=== PATIENT | female | born 1970 | race Caucasian/White ===

== ENCOUNTER → 2018-10-13 | Outpatient (CLI) | payer OTHER ==
[~2018-10-13] MED LIST: ADVAIR 250-501 EACH; ANTIVERT25 MG PO; ASPIR 8181 M1 PO; BACTRIM DS TAB1 EACH PO; BENTYL20 MG PO; BRILINTA90 MG PO; BYSTOLIC 5 MG5 M1 PO; CARAFATE 1 GM TA1 GM PO; CARISOPRODOL 3350 M1 PO; CEFUROXIME250 MG PO; CEFUROXIME500 MG PO; CELEXA40 MG; CEPHALEXIN 500500 M3 PO; CEPHALEXIN500 MG PO; CITRATE OF MAG300 ML PO; CYCLOBENZAPRINE5 MG PO; DEPAKOTE 250MG250 M1 PO; DILTIAZEM 24HR120 MG PO; DOXYCYCLINE 10100 M1 PO; DOXYCYCLINE 10100 MG PO; DUONEB 2.5-0.5 M3 ML INH; FLEXERIL PO; FLONASE 0.05%50 MCG NASAL; HYDROCODONE-AP1 EAC6 PO; HYDROCODONE-APA1 TA1 PO; HYDROXYZINE HCL25 M1; IBUPROFEN 600600 M1 PO; KEFLEX500 MG PO; LASIX 20 MG TAB20 MG PO; LASIX 40 MG TAB40 M2 PO; LATUDA120 MG PO; LATUDA80 MG PO; LEVAQUIN 750 M750 MG PO; LEXAPRO20 MG PO; LIPITOR 20 MG T20 M1 PO; LISINOPRIL20 MG PO; LOPRESSOR25 PO; MEDROLDOSEPACK PO; MINOCIN50 MG PO; MYSOLINE50 MG; NAPROSYN500 MG PO; NEURONTIN 300300 M1 PO; NEURONTIN600 MG PO; NITROGLYCERIN0.4 MG SUBLING; NORCO 5-325 TA1 EACH PO; OMEPRAZOLE 20 M20 M1 PO; ONDANSETRON HCL4 M2 PO; PEPCID20 MG PO; PERCOCET PO; PHENERGAN 25 MG25 M1 PO; POTASSIUM20 PO; PRAZOSIN 1 MG CA1 M1 PO; PREDNISONE 10 M10 MG PO; PREDNISONE 20 M20 MG PO; PRILOSEC 20 MG20 MG PO; PROAIR HFA8.5 GM INH; PROMETHAZINE/C118 ML PO; PROTONIX 20 MG20 M1 PO; PROTONIX40 M1 PO; SYMBICORT160 MCG/4. INH; TAMIFLU75 MG PO; TESSALON PERLE100 MG PO; TOPROL XL25 MG PO; TRAZODONE HCL100 MG PO; VENTOLIN HFA 1818 GM INH; VENTOLIN17 GM INH; VICODIN 5-5001 EACH; VICODIN ES 7.51 EACH PO; VIRTUSSIN AC L118 ML PO; XANAX 0.5 MG0.5 MG PO; ZOFRAN ODT4 MG PO; ZOFRAN4 MG PO; ZPAK PO; xolair
== END ==
LOC: CAT 12:21
DX: R06.02 Shortness of breath (principal); R07.9 Chest pain, unspecified; M47.814 Spondylosis without myelopathy or radiculopathy, thoracic region; M48.04 Spinal stenosis, thoracic region

== ENCOUNTER → 2019-03-06 | Outpatient (CLI) | payer OTHER | LOC: MRI 03-02 08:05 | DX: M47.816 Spondylosis without myelopathy or radiculopathy, lumbar region (principal); M12.88 Other specific arthropathies, not elsewhere classified, other specified site; M51.26 Other intervertebral disc displacement, lumbar region ==

== ENCOUNTER → 2019-05-11 | Outpatient (CLI) | payer OTHER ==
[~2019-05-11] MED LIST changes: +MECLIZINE HCL25 M1 PO
== END ==
LOC: BC 10:54
DX: Z12.31 Encounter for screening mammogram for malignant neoplasm of breast (principal)

== ENCOUNTER → 2019-07-25 | Outpatient (CLI) | payer OTHER | LOC: RAD 17:07 | DX: M54.10 Radiculopathy, site unspecified (principal) ==

== ENCOUNTER → 2019-09-12 | Outpatient (CLI) | payer OTHER ==
[~2019-09-12] VITALS: Ht 172.7 cm; Wt 127.9 kg
[~2019-09-12] MED LIST changes: +DEPAKOTE ER500 M1 PO; +HYDROCODON-ACE1 EAC8 PO; +LEXAPRO 10 MG T10 M2 PO; +OMEPRAZOLE40 MG PO; +ZANAFLEX4 MG PO
--- NOTE | ~2019-09-12 | HPC ---
[facility] [address] [place] [address] PAIN MANAGEMENT CONSULTATION Name: QUIN MCKINLEY QUIQUE Room #: REG DEEPTI Jesusita.#: [id number] Admission: 09/12/19 Attend Phys: Chris Hopkins DO Discharge: Date of : 70 Report #: [id number] THIS REPORT FOR: cc: Chris Pennington James A. DO Johnson, James E. DO ~ CC: Chris Andrews DATE OF SERVICE: 09/12/2019 CHIEF COMPLAINT: Axial back pain. HISTORY OF PRESENT ILLNESS: As you know, the patient is a pleasant, class 3, morbidly obese female who reports longstanding history of axial back pain. She indicates pain began somewhere in 2009. She denies injury or trauma. She reports that the pain she is experiencing radiates only to the posterolateral thigh, it does not go below the knee. She has "just been putting up with her symptoms." Pain has begun to worsen and thus the patient was evaluated further. It was determined that the patient may be suffering from lumbar radiculopathy and she was sent for MRI of the lumbar spine. The patient indicates that her pain is exacerbated with walking and sitting. There is little or no pain with lying down. The pain does not wake her up at night. She describes pain only as aching. She does not use any descriptors of numbness, tingling, burning, electrical when describing symptoms. She has been referred to our service to discuss treatment options for axial back pain. The patient indicates today pain is continuous, steady and constant. She describes the pain as aching, sharp and stabbing when pain is present. Places current pain score 7/10, daily average of 6-9/10, worst pain has been as 10/10. The patient states pain depends upon the day in the activities and when whether or not she will be an extreme pain or mild pain. Heat and cold compresses to the area tend to improve the pain as does pain medications. The patient is easily able to localize pain directly over the right sacroiliac joint and the facet at L5-S1. Symptoms the patient experiences radiating into the posterolateral thigh or aching in sensation and do not follow dermatomal distribution. The patient also reports having to sit on the left buttock area due to increased pain on the right side when seated in a standard chair. She has been referred to our service to discuss treatment options for axial back pain. PAST MEDICAL HISTORY: 1. Asthma. 2. Hypertension. 3. Coronary artery disease, [place] [address] PAIN MANAGEMENT CONSULTATION Name: QUIN MCKINLEY QUIQUE Room #: REG DEEPTI Rosa#: [id number] Admission: 09/12/19 Attend Phys: Chris Hopkins DO Discharge: Date of : 70 Report #: [id number] 4. Emotional problems. 5. Class 3 morbid obesity. 6. Dyslipidemia. 7. Gastroesophageal reflux disease. PAST SURGICAL HISTORY: 1. Tonsillectomy. 2. Gastric sleeve placement. 3. Cholecystectomy. 4. Percutaneous coronary artery stenting. SOCIAL HISTORY: The patient denies tobacco use. Denies IV or illicit drug use. Admits to 1-2 alcohol beverages per week. 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 She is working, not receiving workmen's compensation nor is she trying to obtain discrete benefits. She is not in litigation in regards to pain. She is unaccompanied at today's visit. REVIEW OF SYSTEMS: Positive for wearing corrective eyewear, heart trouble, status post percutaneous stenting, nausea, nervousness, depression, insomnia, GERD, emotional problems, asthma. All other review of systems negative per 12-point review of systems other than those listed in history of present illness. Pain impact score 56 of 70 indicating severe near complete interference of daily activities secondary to pain. IMAGING: MRI of the lumbar spine obtained on 03/06/2019 shows L1-L2, L2-L3, L3-L4 unremarkable. L4-L5 has mild disk bulge, mild facet arthropathy. No central canal nor neural foraminal stenosis, no impingement of nerve roots. No involvement of any lateral recess. L5-S1 shows a small posterior central disk protrusion without central canal or neural foraminal stenosis, no impingement of nerve roots. PHYSICAL EXAMINATION: VITAL SIGNS: Blood pressure 152/81, pulse 82, respiratory rate 16 and unlabored. The patient is 96% on room air. Height 5 feet 8 inches tall, weight 282 pounds, BMI calculated at 42.9. GENERAL: Well-developed, well-nourished, well-hydrated, class 3, morbidly obese 48-year-old female appearing stated age, pain is rated today at 7/10. HEENT: Normocephalic, atraumatic. Pupils equal, round and reactive. Extraocular muscles are intact. Sclerae nonicteric without injection. NEUROLOGIC: Cranial nerves 2-12 grossly intact. Speech is fluent. The patient deemed a good historian. LUNGS: Clear, no wheeze, rhonchi or rales. CARDIOVASCULAR: Regular. No appreciable gallop, no rub. ABDOMEN: Soft, obese, normoactive bowel sounds, spells. [facility] [address] [place] [address] PAIN MANAGEMENT CONSULTATION Name: QUIN MCKINLEY Room #: REG [facility]#: [id number] Admission: 09/12/19 Attend Phys: Chris Hopkins DO Discharge: Date of : 70 Report #: [id number] EXTREMITIES: Show no clubbing, no cyanosis, no edema. MUSCULOSKELETAL: Lower extremity strength equal and symmetrical 5/5, intact to light touch from L1 through S2 dermatomes. Seated straight leg raising negative. Supine straight leg raising negative. Monica's test is positive only for SI joint dysfunction on the right, negative left. Deep palpation of the area causes intensification of pain. Ankle clonus negative. Babinski is negative. Gait mildly antalgic favoring right lower extremity over left secondary to SI joint and generated pain. Lumbar provocation testing is met with increased pain over the facet joints of the lower lumbar spine on the right, negative left. This is noted with rotation and lateral flexion to the right, negative left. Forward flexion of lumbar spine does improve axial back pain. ASSESSMENT: 1. Lumbosacral spondylosis without radiculopathy. 2. Right sacroiliac joint dysfunction. 3. Chronic intractable pain. PLAN: 1. Based on today's physical exam and history the patient has provided, the description the patient uses in regards to pain as well as the location of symptoms, likely source of the patient's pain is a combination of a right sacroiliac joint dysfunction and the facet joints of the lower lumbar spine on the right. The patient reports that she had a fall injury that may have precipitated her ongoing pain, specifically over the SI joint. She apparently fell from a height, landing on her right leg causing instantaneous SI joint symptoms. This is easily correlated back to this fall as the patient remembers it quite vividly during our discussion today. The symptoms do fit with SI joint dysfunction and facet arthropathy of the lumbar spine. We discussed the treatment options for these 2 issues. It would appear that the patient does have a leg length discrepancy based on her physical exam today and this dose further correlate with the SI joint dysfunction. The fact that the patient's good improvement with forward flexion of the lumbar spine, but worsening of symptoms with extension, rotation, and lateral flexion to the right would indicate facet arthropathy symptoms as we were loading the facet joints with those maneuvers. After we discussed the findings of physical exam and the minor findings in her MRI, we then discussed the treatment options for the right sacroiliac joint dysfunction and the facet arthropathy at the L4-L5 and L5-S1 levels. 2. We discussed treatment options, which would include physical therapy, stretching exercise, core strengthening and a concerted effort at weight loss. This is necessary if the patient is going to see prolonged pain improvement. Without weight loss, the facet joints will continue to bear greater and greater weight and thus develop more rapid arthritis. The SI joint is a weightbearing joint and if this is not reduced, it would be difficult for her to maintain good analgesic benefit. We discussed medication management utilizing [address] [address] PAIN MANAGEMENT CONSULTATION Name: QUIN MCKINLEY QUIQUE Room #: REG DEEPTI Rosa#: [id number] Admission: 09/12/19 Attend Phys: Chris Hopkins DO Discharge: Date of : 70 Report #: [id number] anti-inflammatories as the baseline pain control. We discussed intra-articular facet injections, medial branch nerve blocks and radiofrequency lesioning to address the facet joints at the L4-L5 and L5-S1 level on the right. We discussed SI joint injections as well as lesioning of the lateral branches of the sacrum as a way to treat SI joint dysfunction. After reviewing the risks and benefits of all proposed treatment options, the patient chose to begin with medial branch nerve blocks. 3. Due to third green party payer restrictions, authorization has to be obtained before the patient could undergo medial branch nerve blocks. The plan would be to have the patient undergo L3, L4, L5 and S1 medial and lateral branch blocks. If these are successful in alleviating symptoms, we would then recommend undergoing the second in series. If the second in series is also effective, then move forward with radiofrequency lesioning of the medial branch nerves to address axial back pain issues. The patient is agreeable with plan. We will await the authorization for the patient to undergo the procedure. 4. We made no changes in the patient's medication management at this visit. The patient will continue current medical therapy as previously prescribed. 5. We will see the patient back in followup visit once we have achieved authorization to undergo L3, L4, L5 and S1 medial/lateral branch nerve blocks under fluoroscopic guidance. We have not made the patient a tentative appointment as we await the authorization and then make an appointment mutually favorable. 6. We wish to thank Dr. Pennington for the referral of the patient to our clinic. We will keep you apprised of response to treatment as we address her axial back pain due to facet arthropathy and SI joint dysfunction. Again, we wish to thank you for the opportunity to see the patient in consultation. By: [id number] Chris Hopkins DO /nt
[2019-09-12 12:43] VITALS: BP 152/81
--- NOTE | 2019-09-12 13:01 | NUR ---
Pain Clinic Assessment: 1. History of Osteoarthritis: BACK History of Rheumatoid Arthritis: Not Applicable 2. Height: 5 ft. 8 in. 172.7 cm. Weight: 282.0 lb. oz. 127.915 kg. Patient's BMI: 42.9 3. Vital Signs: BP: 152/81 Pulse: 82 Resp: 16 Temp: 02 Sat: 96 ECG Mon: 4. Pain Intensity: 7 5. Fall Risk: Dizziness: N Needs help standing or walking: N Fallen in the last 3 months: N Fall risk comments: 6. Patient on Blood Thinner: None 7. History of Hypertension: Y 8. Opioid Therapy greater than 6 weeks: N Opiate Contract Signed: 9. Risk Assessment Tool Provided: LOW RISK 05/21 10. Functional Assessment Tool: 11. Recreational Drug Use: Never Drug Type: Tobacco Use: Never Smoker Tobacco Type: Amount or Packs/day: How Many Years: Alcohol Use: Yes Frequency: Weekly Quant: 1-2
== END ==
LOC: PAIN 06:44
PROVIDERS: ATTEND Anesthesiology Pain Medicine
DX: M47.817 Spondylosis without myelopathy or radiculopathy, lumbosacral region (principal); G89.29 Other chronic pain; M53.3 Sacrococcygeal disorders, not elsewhere classified; J45.909 Unspecified asthma, uncomplicated; I10 Essential (primary) hypertension; I25.10 Atherosclerotic heart disease of native coronary artery without angina pectoris; Z79.899 Other long term (current) drug therapy

== ENCOUNTER → 2019-09-26 | Outpatient (CLI) | payer OTHER ==
[~2019-09-26] VITALS: Ht 172.7 cm; Wt 126.3 kg
[2019-09-26 12:51] VITALS: BP 150/85
--- NOTE | 2019-09-26 12:59 | NUR ---
Pain Clinic Assessment: 1. History of Osteoarthritis: BACK History of Rheumatoid Arthritis: Not Applicable 2. Height: 5 ft. 8 in. 172.7 cm. Weight: 278.4 lb. oz. 126.282 kg. Patient's BMI: 42.3 3. Vital Signs: BP: 150/85 Pulse: 66 Resp: 16 Temp: 02 Sat: 100 ECG Mon: 4. Pain Intensity: 7 5. Fall Risk: Dizziness: N Needs help standing or walking: N Fallen in the last 3 months: N Fall risk comments: 6. Patient on Blood Thinner: None 7. History of Hypertension: Y 8. Opioid Therapy greater than 6 weeks: N Opiate Contract Signed: 9. Risk Assessment Tool Provided: LOW RISK 05/21 10. Functional Assessment Tool: 11. Recreational Drug Use: Never Drug Type: Tobacco Use: Never Smoker Tobacco Type: Amount or Packs/day: How Many Years: Alcohol Use: Yes Frequency: Special Occasions Quant: 1
--- NOTE | 2019-10-03 11:46 | HPC ---
[facility] [place] [address] PAIN MANAGEMENT CONSULTATION Name: QUIN MCKINLEY QUIQUE Room #: REG DEEPTI Jesusita.#: [id number] Admission: 09/26/19 Attend Phys: Chris Hopkins DO Discharge: Date of : 70 Report #: [id number] THIS REPORT FOR: cc: Chris Pennington James A. DO Johnson, James E. DO ~ DATE OF SERVICE: 09/26/2019 REFERRING PHYSICIAN: Chris Pennington DO CHIEF COMPLAINT: Axial back pain. HISTORY OF PRESENT ILLNESS: As you know, the patient is a pleasant, class 3, morbidly obese female with longstanding history of axial back pain. She indicates pain began somewhere in 2009. Denies injury or trauma. She was seen in consultation per the request of Dr. Pennignton on 09/12/2019, diagnosed with lumbosacral spondylosis without radicular symptoms and some right sacroiliac joint dysfunction. She made today's appointment to undergo medial branch blocks of the right L3, L4 and L5 nerve roots to determine if symptoms will improve with interventional treatments. She returns today in followup visit, reporting pain score 7/10 to undergo right L3, L4, L5 medial branch nerve blocks. ALLERGIES: PENICILLINS. CURRENT MEDICATIONS: Trazodone, gabapentin, atorvastatin, alprazolam, Lexapro, Depakote, omeprazole, ondansetron, hydrocodone, cyclobenzaprine and tizanidine. SOCIAL HISTORY: The patient reports nonsmoker. Denies IV or illicit drug use. Admits to 1-2 alcohol beverages per week. She is employed, working, not receiving workmen's compensation, accompanied by her present in room today. IMAGING: No new imaging available. PHYSICAL EXAMINATION: VITAL SIGNS: Blood pressure 150/85, pulse 66, respiratory rate 16 and unlabored. The patient is 100% on room air. Height 5 feet 8 inches tall, weight 178.4 pounds, BMI calculated 42.3. GENERAL: Well-developed, well-nourished, well-hydrated, class 3, morbidly obese 48-year-old female appearing stated age, pain is rated around 7/10. HEENT: Normocephalic, atraumatic. Pupils equal, round and reactive. EXTREMITIES: Show no clubbing, no cyanosis, no edema. MUSCULOSKELETAL: Lower extremity strength appears symmetrical 5/5. Muscle bulk and tone is equal and symmetrical in comparing left lower extremity to right. Seated straight leg raising negative. Supine straight leg raising negative. [address] [address] PAIN MANAGEMENT CONSULTATION Name: QUIN MCKINLEY QUIQUE Room #: REG DEEPTI Rosa#: [id number] Admission: 09/26/19 Attend Phys: Chris Hopkins DO Discharge: Date of : 70 Report #: [id number] Monica's test is positive for right SI joint dysfunction, negative left. Lumbar provocation testing is met with increased pain on the right. ASSESSMENT: 1. Lumbosacral spondylosis without radiculopathy. 2. Right sacroiliac joint dysfunction. 3. Chronic intractable pain. 4. Morbid obesity. PLAN: 1. The patient has returned today in followup visit to undergo medial branch nerve blocks to address right lower back pain. The patient has been advised risks and benefits of this procedure. These risks include but are not necessarily limited to bleeding, bruising, infection, worsening of pain, no relief of pain, also risk of temporary or permanent muscle weakness, temporary or permanent nerve damage, possible paralysis and . The patient states understood and wished to proceed. 2. We will see the patient back in followup visit in 1 week for second in the series of medial branch blocks assuming excellent efficacy with this block today. She returns to that appointment and we will discuss the efficacy of today's appointment and we will determine whether or not moving forward with the treatment is appropriate. DESCRIPTION OF PROCEDURE: Right L3, L4, L5 medial branch block under fluoroscopic guidance. This is the first of 2 diagnostic medial branch blocks on the right side that the patient is undergoing. After obtaining written consent, the patient was taken back to the fluoroscopy suite and placed in a prone position on the fluoroscopy table with a pillow under the abdomen to decrease the lumbar lordosis. The skin overlying the lumbosacral area was prepped and draped in an aseptic fashion. The L4 transverse process corresponding L3 medial branch nerve, L5 transverse process corresponding the L4 medial branch nerve on the right side was visualized under AP fluoroscopy. The skin and subcutaneous tissue overlying the target site(s) of injection was anesthetized using 2 mL of 1% lidocaine. Three 22-gauge, 4-1/2 inch spinal needles with bent tip was advanced under fluoroscopic guidance using a superior to inferior, lateral to medial approach to the dorsal, superior and medial aspect of the base of the transverse process(es). The needles were then directed ventral, medial and caudad to reach the target location(s). An oblique view facilitated needle placement with properly positioned needles(s) in the middle of the "eye" of the Osmin dog for the medial branch block(s). At each site the needle(s) rested on periosteum. After negative aspiration for heme or [facility] [address] [place] [address] PAIN MANAGEMENT CONSULTATION Name: QUIN MCKINLEY Room #: REG [facility]#: [id number] Admission: 09/26/19 Attend Phys: Chris Hopkins DO Discharge: Date of : 70 Report #: [id number] CSF, 0.5mL of bupivacaine 0.5% was slowly injected at each site to avoid forcing the solution away from the target points(s). The needles were the removed. The L5 dorsal ramus block on the right side was performed using a slightly oblique approach under fluoroscopic guidance, placing the needle within the groove between the sacral site and the superior articular process of S1. The needle rested on periosteum. After negative aspiration for heme or CSF, 0.5mL bupivacaine 0.5% was slowly injected to avoid forcing the solution away from the target point. The needle was then removed. Sterile bandages were placed over the injection site. There were no apparent complications. The patient tolerated the procedure well and was carefully escorted to the recovery room in stable condition. The VAS was 7/10 before the procedure and 0/10 minutes after the procedure. After meeting discharge criteria, the patient was discharged home. <ELECTRONICALLY SIGNED> By: Chris Hopkins DO 10/03/19 [id number] Chris Hopkins DO /nt
== END | disposition home or self-care (01) ==
LOC: PAIN 06:54
PROVIDERS: ATTEND Anesthesiology Pain Medicine
DX: M47.816 Spondylosis without myelopathy or radiculopathy, lumbar region (principal); G89.29 Other chronic pain; M53.3 Sacrococcygeal disorders, not elsewhere classified; E66.01 Morbid (severe) obesity due to excess calories; E78.5 Hyperlipidemia, unspecified; F31.9 Bipolar disorder, unspecified; I25.10 Atherosclerotic heart disease of native coronary artery without angina pectoris; Z98.890 Other specified postprocedural states; Z68.41 Body mass index [BMI] 40.0-44.9, adult; Z79.899 Other long term (current) drug therapy; Z86.73 Personal history of transient ischemic attack (TIA), and cerebral infarction without residual deficits

== ENCOUNTER → 2019-10-02 | Outpatient (CLI) | payer OTHER ==
[~2019-10-02] VITALS: Ht 172.7 cm; Wt 125.9 kg
[2019-10-02 08:07] VITALS: BP 127/81
--- NOTE | 2019-10-02 08:13 | NUR ---
Pain Clinic Assessment: 1. History of Osteoarthritis: BACK History of Rheumatoid Arthritis: Not Applicable 2. Height: 5 ft. 8 in. 172.7 cm. Weight: 277.6 lb. oz. 125.919 kg. Patient's BMI: 42.2 3. Vital Signs: BP: 127/81 Pulse: 72 Resp: 16 Temp: 02 Sat: 99 ECG Mon: 4. Pain Intensity: 3-4 5. Fall Risk: Dizziness: N Needs help standing or walking: N Fallen in the last 3 months: N Fall risk comments: 6. Patient on Blood Thinner: None 7. History of Hypertension: Y 8. Opioid Therapy greater than 6 weeks: N Opiate Contract Signed: 9. Risk Assessment Tool Provided: LOW RISK 05/21 10. Functional Assessment Tool: 11. Recreational Drug Use: Never Drug Type: Tobacco Use: Never Smoker Tobacco Type: Amount or Packs/day: How Many Years: Alcohol Use: Yes Frequency: Monthly Quant: 1-2
--- NOTE | 2019-10-03 11:46 | HPC ---
[facility] [place] [address] PAIN MANAGEMENT CONSULTATION Name: QUIN MCKINLEY QUIQUE Room #: REG MANNAleah Mc.#: [id number] Admission: 10/02/19 Attend Phys: Chris Hopkins DO Discharge: Date of : 70 Report #: [id number] THIS REPORT FOR: cc: Chris Pennington James A. DO Johnson, James E. DO ~ DATE OF SERVICE: 10/02/2019 REFERRING PHYSICIAN: Dr. Chris Pennington. CHIEF COMPLAINT: Axial back pain. HISTORY OF PRESENT ILLNESS: As you know, the patient is a 49-year-old, class 3, morbidly obese female with longstanding history of axial back pain, who returns today in followup visit having completed medial branch blocks of the right L3, L4, and L5 lumbar medial branch nerves with good efficacy. She reports near 100% improvement in overall pain lasting for hours. Unfortunately, her symptoms did return, which is appropriate for this diagnostic testing. She returns today in followup visit for the second in the series of diagnostic testing with plans to move forward with radiofrequency lesioning if this is successful at alleviating her symptoms again over a prescribed period of time. The patient is placing pain today at 3-4/10. As indicated above, the patient reported 100% improvement in overall pain lasting for nearly 9 hours. ALLERGIES: PENICILLIN. CURRENT MEDICATIONS: Tizanidine, cyclobenzaprine, hydrocodone, ondansetron, omeprazole, Depakote, escitalopram, alprazolam, atorvastatin, gabapentin, trazodone. SOCIAL HISTORY: The patient denies tobacco use, denies IV or illicit drug use. Admits to 1-2 alcohol beverages per week. 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 IMAGING: No new imaging available. PHYSICAL EXAMINATION: VITAL SIGNS: Blood pressure 127/81, pulse 72, respiratory rate 16 and unlabored. The patient is 99% on room air. Height 5 feet 8 inches tall, weight 277.6 pounds, BMI calculated 42.2. GENERAL: Well-developed, well-nourished, well-hydrated, class 3, morbidly obese 49-year-old female, appearing stated age, pain is rated at 3-4/10. HEENT: Normocephalic, atraumatic. Pupils equal, round, and reactive. Speech fluent. [address] [address] PAIN MANAGEMENT CONSULTATION Name: QUIN MCKINLEY Room #: REG CLI .Viviane.#: [id number] Admission: 10/02/19 Attend Phys: Chris Hopkins DO Discharge: Date of : 70 Report #: [id number] EXTREMITIES: Show no clubbing, no cyanosis, no edema. MUSCULOSKELETAL: Lower extremity strength appears symmetrical 5/5, intact to light touch from L1 through S2 dermatomes. Ankle clonus negative. Babinski remains negative. Monica's test is positive for right SI joint dysfunction, negative on the left. Seated straight leg raising negative. Supine straight leg raising negative. Modified Gaenslen's positive for axial low back pain. Lumbar provocation including extension, rotation, lateral flexion to the right causes intensification of pain. ASSESSMENT: 1. Lumbosacral spondylosis without radiculopathy. 2. Facet arthropathy of the lumbar spine. 3. Right sacroiliac joint dysfunction. 4. Chronic intractable pain. PLAN: 1. The patient returns today in followup visit having received 100% improvement in overall pain lasting for nearly 9 hours with the previous medial branch nerve blocks on the right side. She returns today in followup visit for the second in the series of this progressive process. If she sees excellent benefit with this injection, then we will move forward with radiofrequency lesioning of the right L3, L4, and L5 medial branch nerves. The patient is agreeable with plan. She has been advised of the risks and benefits of the second in the series of medial branch blocks, states she understood and wished to proceed. 2. The patient was provided a restriction in lifting and ambulatory activities today at work to recover from today's procedure. 3. No medication changes made at today's visit. The patient will continue current medical therapy as previously prescribed. 4. We will see the patient back in followup visit for radiofrequency lesioning of the right L3, L4, and L5 medial branch nerves, assuming good efficacy with today's procedure. She left our clinic today reducing her pain by 50%. DESCRIPTION OF PROCEDURE: Right L3, L4, L5 medial branch nerve blocks under fluoroscopy. This is the second of 2 diagnostic medial branch blocks on the right side that the patient is undergoing. After obtaining written consent, the patient was taken back to the fluoroscopy suite and placed in a prone position on the fluoroscopy table with a pillow under the abdomen to decrease the lumbar lordosis. The skin overlying the lumbosacral area was prepped and draped in an aseptic fashion. The L4 transverse process corresponding the L3 medial branch nerve and the L5 transverse process corresponding the L4 medial branch nerve on the right side was visualized under AP fluoroscopy. The skin and subcutaneous tissue overlying the target site(s) of injection were anesthetized using 2 mL of 1% lidocaine. [address] [address] PAIN MANAGEMENT CONSULTATION Name: QUIN MCKINLEY Room #: REG [facility]#: [id number] Admission: 10/02/19 Attend Phys: Chris Hopkins DO Discharge: Date of : 70 Report #: [id number] Four, 22-gauge, 4-1/2-inch spinal needle with a bent tip was advanced under fluoroscopic guidance using a superior to inferior and lateral to medial approach to the dorsal, superior and medial aspect of the base of the transverse process(es). The needles were then directed ventral, medial and caudad to reach the target location(s). An oblique view facilitated needle placement with properly positioned needles(s) in the middle of the "eye" of the Osmin dog for the medial branch block(s). At each site the needle(s) rested on periosteum. After negative aspiration for heme or CSF, 0.5 mL of bupivacaine 0.5% was slowly injected at each site to avoid forcing the solution away from the target points(s). The needle(s) were then removed. The L5 dorsal ramus block on the right side was performed using a slightly oblique approach under fluoroscopic guidance, placing the needle within the groove between the sacral site and the superior articular process of S1. The needle rested on periosteum. After negative aspiration for heme or CSF, 0.5 mL of bupivacaine 0.5% was slowly injected to avoid forcing the solution away from the target point. The needle was then removed. Sterile bandages were placed over the site. There were no apparent complications. The patient tolerated the procedure well and was carefully escorted to the recovery room in stable condition. The VAS was 4/10 before the procedure and 2/10 10 minutes after the procedure. After meeting discharge criteria, the patient was discharged home. <ELECTRONICALLY SIGNED> By: Chris Hopkins DO 10/03/19 [id number] Chris Hopkins DO /nt
== END | disposition home or self-care (01) ==
LOC: PAIN 06:47
PROVIDERS: ATTEND Anesthesiology Pain Medicine
DX: M47.817 Spondylosis without myelopathy or radiculopathy, lumbosacral region (principal); M47.816 Spondylosis without myelopathy or radiculopathy, lumbar region; M53.3 Sacrococcygeal disorders, not elsewhere classified; M54.9 Dorsalgia, unspecified; G89.29 Other chronic pain; I25.10 Atherosclerotic heart disease of native coronary artery without angina pectoris; Z98.890 Other specified postprocedural states; Z79.899 Other long term (current) drug therapy; Z86.73 Personal history of transient ischemic attack (TIA), and cerebral infarction without residual deficits; Z88.0 Allergy status to penicillin

== ENCOUNTER → 2019-10-09 | Outpatient (CLI) | payer OTHER ==
[~2019-10-09] VITALS: Ht 172.7 cm; Wt 125.6 kg
--- NOTE | ~2019-10-09 | HPC ---
[facility] [address] [address] PAIN MANAGEMENT CONSULTATION Name: QUIN MCKINLEY QUIQUE Room #: REG MANNAleah Mc.#: [id number] Admission: 10/09/19 Attend Phys: Chris Hopkins DO Discharge: Date of : 70 Report #: [id number] THIS REPORT FOR: cc: Chris Pennington James A. DO Johnson, James E. DO ~ CC: Chris Andrews DATE OF SERVICE: 10/09/2019 CHIEF COMPLAINT: Axial back pain. HISTORY OF PRESENT ILLNESS: As you know, the patient is a class 3, morbidly obese 49-year-old female with longstanding history of axial back pain, who was referred to our clinic to discuss treatment for facet arthropathy pain involving the right lower back. She has successfully completed medial branch nerve blocks x 2 with good efficacy to address the L3, L4, L5 medial branches on the right side. She returns today in followup visit to undergo radiofrequency lesioning of the right L3, L4 and L5 medial branch nerves in hopes of gaining analgesic benefit. The patient places current pain at 4/10. The previous medial branch blocks provided 100% improvement in overall pain lasting for several hours. She returns today for radiofrequency lesioning of the right L3, L4 and L5 medial branch nerves. ALLERGIES: PENICILLIN. CURRENT MEDICATIONS: Tizanidine, cyclobenzaprine, hydrocodone, ondansetron, omeprazole, Depakote, escitalopram, alprazolam, atorvastatin, gabapentin, and trazodone. SOCIAL HISTORY: The patient denies tobacco use. Denies IV or illicit drug use. Admits to occasional alcohol beverage. 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 IMAGING: No new imaging available. PHYSICAL EXAMINATION: VITAL SIGNS: Blood pressure 123/71, pulse 70, respiratory rate 18 and unlabored. The patient is 99% on room air. Height 5 feet 8 inches tall, weight 277 pounds, BMI calculated 42.1. GENERAL: Well-developed, well-nourished, well-hydrated, class 3, morbidly obese 49-year-old female, appearing stated age, pain is rated today at approximately 4/10. [address] [address] PAIN MANAGEMENT CONSULTATION Name: QUIN MCKINLEY QUIQUE Room #: REG [facility] Jesusita.#: [id number] Admission: 10/09/19 Attend Phys: Chris Hopkins DO Discharge: Date of : 70 Report #: [id number] HEENT: Normocephalic, atraumatic. Pupils equal, round and reactive. Speech fluent. EXTREMITIES: Show no clubbing, no cyanosis, no edema. MUSCULOSKELETAL: Seated straight leg raising remains negative. Supine straight leg raising negative. Monica's test is negative. Modified Gaenslen's positive for axial low back pain. Lumbar provocation testing including extension, rotation, lateral flexion all intensify axial back pain directly over the facet joints on the right. ASSESSMENT: 1. Lumbosacral spondylosis without radiculopathy. 2. Facet arthropathy of the lumbar spine. 3. Continued right sacroiliac joint dysfunction. 4. Chronic intractable pain. PLAN: 1. The patient returns today in followup visit having noted 100% improvement in overall pain with the medial branch blocks provided at our last visit. She returns today for radiofrequency lesioning of the right L3, L4 and L5 medial branch nerves. The patient has been advised risks and benefits of this procedure. These risks include but are not necessarily limited to bleeding, bruising, infection, worsening pain, no relief of pain, also risk of temporary or permanent muscle weakness, temporary or permanent nerve damage, possible paralysis and . The patient states understood and wished to proceed. 2. No medication changes made at today's visit. The patient will continue current medical therapy as prior prescribed. 3. The patient has requested refill of her pain medication started by Dr. Chris Pennington. We advised the patient we could provide her medications, but they would only fill a 7-day prescription for initial dosing. This is due to third republic[employer] payer restrictions. They would only offer a 7-day prescription with a new prescribing physician and then the patient would have to pay javier for the 3 remaining weeks of the month to maintain medications. We recommend the patient follow up with the prescribing physician for refill of the medications as they will be able to provide a 30-day prescription. I am hopeful the patient will no longer need these medications in the very near future. We have advised the patient at this time that the plan is to wean off of opioid medications as quickly as possible. She can do this through her primary care physician, the prescribing doctor. 4. We will be available to see the patient back in followup visit on an as needed basis. We wish the patient well with this radiofrequency lesioning and will see her back on an as needed treatment basis. By: [id number] Chris Hopkins DO /nt
--- NOTE | ~2019-10-09 | P ---
[facility] [place] [address] PROCEDURE REPORT Name: QUIN MCKINLEY QUIQUE Room #: REG Aleah Mc.#: [id number] Admission: 10/09/19 Attend Phys: Chris Hopkins DO Discharge: Date of : 70 Report #: [id number] THIS REPORT FOR: cc: Chris Pennington James A. DO Johnson, James E. DO ~ CC: Chris Andrews DATE OF SERVICE: 10/09/2019 DESCRIPTION OF PROCEDURE: Right L3, L4, L5 radiofrequency lesioning of the medial branch nerves of the lumbar spine. The procedure was explained and informed consent was obtained from the patient. The patient was informed of the risks of procedure including infection, bleeding, nerve damage, failure to produce pain relief, and postoperative discomfort lasting for several weeks. The patient agrees to undergo the procedure and signed the consent. The patient was then taken to the fluoroscopy suite, placed in prone position with pillow under abdomen to decrease lumbar lordosis. Skin overlying lumbosacral area then prepped and draped in aseptic fashion. AP imaging of the lumbar spine was used to identify the L2 through L5 vertebral bodies and the sacral ala. The target location of the right side of the L4 transverse process corresponding the L3 medial branch nerve and the L5 transverse process corresponding the L4 medial branch nerves were established. Using a 25-gauge 1-1/4 inch needle, skin wheals were placed at the junction of the transverse processes in the respective superior articular process using 1 mL of 1% lidocaine. We were careful to only anesthetize the skin and not the deep tissue. The 15 mm radiofrequency lesioning needles were advanced under fluoroscopic guidance using a superior, inferior, lateral to medial approach to the dorsal superior and medial aspect of the base of the transverse processes. [place] rested on periosteum. Oblique view facilitated needle placement with properly positions within the middle of the "eye" of the Corey dog. Touching the bone initially assured the needles were not placed too deeply. Radiofrequency lesioning of the L5 medial branch nerve on the right side was performed using a superior to inferior, lateral to medial approach under fluoroscopic guidance, placing the needle within the groove between the sacral ala and the superior articular process of S1. Needle rested on periosteum. Stimulation was performed at each level once the cannulas were in position. Sensory stimulation performed at 0.2, 0.5 and 0.1 with good impedance of 209, 218 and 245 at 50 Hz for the L3, L4, L5 medial branch nerves respectively. [facility] [address] [place] [address] PROCEDURE REPORT Name: QUIN MCKINLEY QUIQUE Room #: REG DEEPTI Rosa#: [id number] Admission: 10/09/19 Attend Phys: Chris Hopkins DO Discharge: Date of : 70 Report #: [id number] stimulation of the lumbar and buttock region was elicited indicating correct alignment with the posterior primary ramus. Absence of lower motor fasciculation was noted at 3 volts 2 Hz stimulation when testing the L3, L4, L5 medial branch nerves respectively. Following the affirmation of dissociation between sensory and motor stimulation, negative aspiration was noted as well as cerebrospinal fluid negative noted at each level. Next, 1 mL of bupivacaine 0.5% was injected slowly. After a 90-second delay, lesions were performed at a temperature of 80 degrees Celsius for 90 seconds. After each of the needles had cooled, 1 mL of a solution containing 1 mL 40 mg per mL, 40 mg total triamcinolone and 4 mL of bupivacaine 0.5% injected slowly. Needle was then retracted approximately half way, flushed with 1 mL of 1% lidocaine and then removed. Sterile bandages placed over each of the injection sites. The patient was able to move all 4 extremities purposefully after procedure. The patient tolerated procedure well, carefully escorted to recovery room in stable condition. No apparent complications. After meeting our discharge criteria, the patient discharged home. By: [id number] Chris Hopkins DO /nt
[2019-10-09 08:23] VITALS: BP 123/71
--- NOTE | 2019-10-09 08:29 | NUR ---
Pain Clinic Assessment: 1. History of Osteoarthritis: BACK History of Rheumatoid Arthritis: Not Applicable 2. Height: 5 ft. 8 in. 172.7 cm. Weight: 277.0 lb. oz. 125.647 kg. Patient's BMI: 42.1 3. Vital Signs: BP: 123/71 Pulse: 70 Resp: 18 Temp: 02 Sat: 99 ECG Mon: 4. Pain Intensity: 4 5. Fall Risk: Dizziness: N Needs help standing or walking: N Fallen in the last 3 months: N Fall risk comments: 6. Patient on Blood Thinner: None 7. History of Hypertension: Y 8. Opioid Therapy greater than 6 weeks: N Opiate Contract Signed: 9. Risk Assessment Tool Provided: LOW RISK 3 10. Functional Assessment Tool: 56/ 11. Recreational Drug Use: Never Drug Type: Tobacco Use: Never Smoker Tobacco Type: Amount or Packs/day: How Many Years: Alcohol Use: Yes Frequency: Quant:
== END | disposition home or self-care (01) ==
LOC: PAIN 06:52
PROVIDERS: ATTEND Anesthesiology Pain Medicine
DX: M47.817 Spondylosis without myelopathy or radiculopathy, lumbosacral region (principal); M47.816 Spondylosis without myelopathy or radiculopathy, lumbar region; G89.29 Other chronic pain; M53.3 Sacrococcygeal disorders, not elsewhere classified; Z98.890 Other specified postprocedural states; Z79.899 Other long term (current) drug therapy; Z88.0 Allergy status to penicillin

== ENCOUNTER → 2019-11-13 | Outpatient (CLI) | payer OTHER ==
[~2019-11-13] VITALS: Ht 172.7 cm; Wt 128.5 kg
[2019-11-13 08:30] VITALS: BP 143/83
--- NOTE | 2019-11-13 08:37 | NUR ---
Pain Clinic Assessment: 1. History of Osteoarthritis: BACK History of Rheumatoid Arthritis: Not Applicable 2. Height: 5 ft. 8 in. 172.7 cm. Weight: 283.2 lb. oz. 128.459 kg. Patient's BMI: 43.1 3. Vital Signs: BP: 143/83 Pulse: 71 Resp: 16 Temp: 02 Sat: 100 ECG Mon: 4. Pain Intensity: 5; 7-8 AT WORST 5. Fall Risk: Dizziness: N Needs help standing or walking: N Fallen in the last 3 months: N Fall risk comments: 6. Patient on Blood Thinner: None 7. History of Hypertension: Y 8. Opioid Therapy greater than 6 weeks: N Opiate Contract Signed: 9. Risk Assessment Tool Provided: LOW RISK 3 10. Functional Assessment Tool: 56/70 11. Recreational Drug Use: Never Drug Type: Tobacco Use: Never Smoker Tobacco Type: Amount or Packs/day: How Many Years: Alcohol Use: Yes Frequency: Quant:
--- NOTE | 2019-11-13 14:22 | HPC ---
[facility] [place] [address] PAIN MANAGEMENT CONSULTATION Name: QUIN MCKINLEY QUIQUE Room #: REG MANNAleah Mc.#: [id number] Admission: 11/13/19 Attend Phys: Chris Hopkins DO Discharge: Date of : 70 Report #: [id number] THIS REPORT FOR: cc: Chris Pennington James A. DO Johnson, James E. DO ~ DATE OF SERVICE: 11/13/2019 CHIEF COMPLAINT: Right SI joint pain. HISTORY OF PRESENT ILLNESS: As you know, the patient is a 49-year-old, class 3 morbidly obese female with longstanding history of axial back pain, who underwent radiofrequency lesioning at her last visit of the medial branch nerves L3, L4, L5 on the right side. This was done on 10/09/2019 with complete resolution of her axial back pain. Unfortunately, continues to experience SI joint discomfort. She reports the pain at the left SI is up to 8/10. She returns today in followup visit to discuss treatment options for right sacroiliac joint pain. She denies new injury, trauma or any changes in medical history since our last visit. ALLERGIES: PENICILLIN. CURRENT MEDICATIONS: Tizanidine, cyclobenzaprine, hydrocodone, ondansetron, omeprazole, Depakote, escitalopram, alprazolam, atorvastatin, gabapentin, and trazodone. SOCIAL HISTORY: The patient denies tobacco use. Denies IV or illicit drug use. She admits to occasional alcohol beverage. 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 IMAGING: No new imaging available. PHYSICAL EXAMINATION: VITAL SIGNS: Blood pressure is 143/83, pulse 71, respiratory rate 16 and unlabored. The patient is 100% on room air. Height 5 feet 8 inches tall, weight 283.2 pounds, BMI calculated 43.1. GENERAL: Well-developed, well-nourished, well-hydrated, class 3 morbidly obese 49-year-old female, appearing her stated age, pain is rated anywhere from 5-8/10. HEENT: Normocephalic, atraumatic. Pupils are equal, round and reactive. NEUROLOGIC: Speech fluent. The patient deemed an excellent historian. EXTREMITIES: Show no clubbing, no cyanosis, and no noted edema. MUSCULOSKELETAL: Seated straight leg raising remains negative. Supine straight leg raising negative. Monica's test is negative for intrinsic hip pathology, [address] [address] PAIN MANAGEMENT CONSULTATION Name: QUIN MCKINLEY Room #: REG [facility].#: [id number] Admission: 11/13/19 Attend Phys: Chris Hopkins DO Discharge: Date of : 70 Report #: [id number] though does show some exacerbation of SI joint on the right when compared to left. Modified Gaenslen's is negative at present. Provocating testing over the SI joint on the right causes intensification of pain. ASSESSMENT: 1. Right sacroiliac joint pain. 2. History of lumbosacral spondylosis without radiculopathy. 3. Facet arthropathy of the lumbar spine. PLAN: 1. The patient returns today in followup visit having complete resolution of her axial back pain, status post radiofrequency lesioning performed last month. She is very pleased with response to radiofrequency lesioning. She returns with continued SI joint dysfunction. She is able to easily localize pain over the right sacroiliac joint. Pain is exacerbated with standing, walking and sitting, improves with lying down. This is consistent with SI joint dysfunction. We discussed with the patient the treatment options available for SI joint pain. The following was discussed with the patient today. 1. We discussed physical therapy, stretching exercises, core strengthening and a concerted effort at weight loss. We discussed medication management utilizing anti-inflammatory medications. We discussed intraarticular SI joint injections as a way to improve pain. We also discussed fusion of the SI joint. After reviewing risks and benefits of all proposed treatment options, the patient chose to look towards the fusion of the SI joint. 2. The patient was advised that we do not offer this type of procedure at our clinic. We will be referring the patient to Dr. Marco Russo. The patient was agreeable with that plan. The patient will seek evaluation and treatment with Dr. Russo to address the SI joint symptoms. We are hopeful that she will be able to be seen quickly and begin the treatment course. 3. No medication changes made at today's visit. The patient will continue current medical therapy as previously prescribed. 4. We have taken the liberty of sending the patient's information over to Dr. Russo's office today along with a dictation of today's evaluation to begin the process of scheduling her with Dr. Russo for an SI joint treatment. The patient can contact our clinic with any questions or concerns in regards to progressing towards treatment. <ELECTRONICALLY SIGNED> By: Chris Hopkins DO 11/13/19 1422 [id number] Chris Hopkins DO /nt
== END ==
LOC: PAIN 06:39
PROVIDERS: ATTEND Anesthesiology Pain Medicine
DX: M53.3 Sacrococcygeal disorders, not elsewhere classified (principal); E66.01 Morbid (severe) obesity due to excess calories; Z79.899 Other long term (current) drug therapy; Z88.0 Allergy status to penicillin

== ENCOUNTER → 2020-11-19 | Outpatient (CLI) | payer OTHER ==
[~2020-11-19] VITALS: Ht 172.7 cm; Wt 95.8 kg
[~2020-11-19] MED LIST changes: +OXYCODONE HCL 55 MG PO
[2020-11-19 10:17] VITALS: BP 121/79
--- NOTE | 2020-11-19 10:24 | NUR ---
Pain Clinic Assessment: 1. History of Osteoarthritis: BACK History of Rheumatoid Arthritis: Not Applicable 2. Height: 5 ft. 8 in. 172.7 cm. Weight: 211.2 lb. oz. 95.800 kg. Patient's BMI: 32.1 3. Vital Signs: BP: 121/79 Pulse: 70 Resp: 18 Temp: 02 Sat: 97 ECG Mon: 4. Pain Intensity: 7 5. Fall Risk: Dizziness: N Needs help standing or walking: N Fallen in the last 3 months: N Fall risk comments: 6. Patient on Blood Thinner: None 7. History of Hypertension: Y 8. Opioid Therapy greater than 6 weeks: N Opiate Contract Signed: 9. Risk Assessment Tool Provided: LOW RISK 3 10. Functional Assessment Tool: 56/70 11. Recreational Drug Use: Never Drug Type: Tobacco Use: Never Smoker Tobacco Type: Amount or Packs/day: How Many Years: Alcohol Use: Yes Frequency: Special Occasions Quant: 1
--- NOTE | 2020-11-26 08:23 | HPC ---
[facility] [place] [address] PAIN MANAGEMENT CONSULTATION Name: QUIN MCKINLEY QUIQUE Room #: REG DEEPTI Jesusita.#: [id number] Admission: 11/19/20 Attend Phys: Chris Hopkins DO Discharge: Date of : 70 Report #: [id number] THIS REPORT FOR: cc: Chris Pennington,Chris Kirby DO ~ cc: Chris Pennington DO DATE OF SERVICE: 11/19/2020 REFERRING PHYSICIAN: Dr. Chris Pennington. CHIEF COMPLAINT: Low back and right lower extremity pain. HISTORY OF PRESENT ILLNESS: As you know, the patient is a 50-year-old female who was referred to our service in 08/2019 to address low back symptoms. She underwent radiofrequency lesioning of the medial branch nerves of lumbar spine on 10/09/2019 with improvement in symptoms. She continues to experience right SI joint pain for which she was seen, evaluated and treated. She has ultimately undergone fusion of the SI joint with resolution of the sacroiliac pain, but continues to experience right lower extremity pain consistent with a synovial cyst found on a recent MRI dated 10/15/2020. She was being seen by Dr. Russo who did a fusion of her SI joint and was advised that surgical options would be the only way to address the synovial cyst at the L4-L5 level. She has referred herself back to our clinic to discuss options for treatment to address this ongoing right lower extremity pain secondary to the synovial cyst at the L4-L5 level. The patient places current pain score at 7/10. She has had no new changes in her medical management since our last visit. She is not on any blood thinners. ALLERGIES: PENICILLIN. CURRENT MEDICATIONS: Oxycodone IR 5 mg every 6 hours p.r.n. pain, tizanidine 4 mg once a day, cyclobenzaprine 10 mg once a day, ondansetron 4 mg p.r.n., omeprazole 40 mg per day, Depakote ER 500 mg 2 tabs once a day, escitalopram 10 mg once a day, alprazolam 0.5 mg t.i.d., atorvastatin 20 mg per day, gabapentin 600 mg 3 times a day, trazodone 100 mg tablet 3 tabs p.o. at bedtime. SOCIAL HISTORY: The patient denies tobacco use. Denies IV or illicit drug use. Admits occasional alcohol beverage. 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 IMAGING: No new imaging available. PHYSICAL EXAMINATION: VITAL SIGNS: Blood pressure 121/79, pulse 70, respiratory rate [address] [address] PAIN MANAGEMENT CONSULTATION Name: QUIN MCKINLEY QUIQUE Room #: REG CL M.Viviane.#: [id number] Admission: 11/19/20 Attend Phys: Chris Hopkins DO Discharge: Date of : 70 Report #: [id number] unlabored. The patient 97% on room air. Height 5 feet 8 inches tall, weight 211.2 pounds, BMI calculated at 32.1. GENERAL: Well-developed, well-nourished, well-hydrated 50-year-old female appearing stated age, placing current pain score 7/10. HEENT: Normocephalic, atraumatic. Pupils equal, round and responsive. She is wearing a mask in compliance with COVID-19 regulations. EXTREMITIES: Show no clubbing, no cyanosis and no edema. MUSCULOSKELETAL: Lower extremity strength equal and symmetrical 5/5. Slight giveaway strength noted with hip flexion, knee extension on the right when compared to left. Seated straight leg raising negative. Supine straight leg raising is mildly positive on the right about 70-degree angle. Ankle clonus negative. Babinski is negative. Gait appears mildly antalgic favoring right lower extremity over left. Muscle bulk and tone is equal and symmetrical. Deep tendon reflexes are equal and symmetrical at patella and Achilles. ASSESSMENT: 1. Symptomatic lumbar radiculopathy. 2. Right lateral recess stenosis. 3. Mild central canal stenosis. 4. Synovial cyst of the right facet joint causing mass effect. 5. Chronic intractable pain. PLAN: 1. The patient returns today in followup visit having fevers to her SI joints with a percutaneous procedure with good effects. Unfortunately, the patient is continuing to experience right lower extremity symptoms. She has undergone MRI of the lumbar spine dated 10/15/2020 where it was found that she has an L4-L5 facet joint synovial cyst causing mass effect on the lateral recess consistent with the pain distribution the patient is experiencing. Apparently, she discussed this with her pain physician, Dr. Russo who advised the patient surgical options would be the only alternative. The patient made an appointment with our clinic to discuss a second opinion. We reviewed with the patient the options for treatment. Following was discussed with the patient today. 2. We discussed physical therapy, stretching exercise, core strengthening as a treatment course. We discussed suggestions and medication management with gabapentin. We discussed epidural injections as a possible treatment course. We also discussed with the patient percutaneous cyst fenestration under CT guidance. This will be done through Interventional Radiology or surgical excision of the synovial cyst. After reviewing the risks and benefits of all proposed treatment options, the patient chose to look toward surgical options. 3. The patient was given a referral from our clinic to see her neurosurgeon, Dr. Jamie Krishna. The patient has requested this referral to be evaluated to discuss excision of the synovial cyst. The patient will make that appointment at her earliest convenience. 4. No medication changes made at today's visit. The patient will continue current medical therapy as prior prescribed. [address] [address] PAIN MANAGEMENT CONSULTATION Name: ARLENQUIN Room #: REG CLAleah Rosa#: [id number] Admission: 11/19/20 Attend Phys: Chris Hopkins DO Discharge: Date of : 70 Report #: [id number] 5. We plan to see the patient back in followup visit on an as needed basis. We are hopeful that the patient will see good benefit with addressing her synovial cyst mass effect on the nerve roots at the L4-L5 level with surgical options. <ELECTRONICALLY SIGNED> By: Chris Hopkins DO 11/26/20 0823 1430 24 Chris Hopkins DO /nt
== END ==
LOC: PAIN 08:45
PROVIDERS: ATTEND Anesthesiology Pain Medicine
DX: M54.16 Radiculopathy, lumbar region (principal); M54.5 Low back pain; G93.89 Other specified disorders of brain; M79.661 Pain in right lower leg; M71.30 Other bursal cyst, unspecified site; M48.061 Spinal stenosis, lumbar region without neurogenic claudication; Z88.8 Allergy status to other drugs, medicaments and biological substances; Z79.899 Other long term (current) drug therapy

== ENCOUNTER → 2021-03-05 | Outpatient (CLI) | payer OTHER | LOC: RAD 14:01 | PROVIDERS: ATTEND Nurse Practitioner | DX: M47.814 Spondylosis without myelopathy or radiculopathy, thoracic region (principal); M48.54XA Collapsed vertebra, not elsewhere classified, thoracic region, initial encounter for fracture; M25.78 Osteophyte, vertebrae; M54.6 Pain in thoracic spine ==